=== PATIENT | female | born 1970 | race Caucasian/White ===

== ENCOUNTER 2021-10-11 08:37 | Emergency (ER) | payer MEDICARE, OTHER ==
[2021-10-11 10:24] LABS: HEMOGLOBIN 14.3 gm/dl (12.3-15.3); RED BLOOD COUNT 4.57 M/UL (4.00-5.10); WHITE BLOOD COUNT 9.8 K/UL (4.5-11.0)
[2021-10-11 11:06] LABS: BUN/CREATININE RATIO 10 (0-10)
== END 2021-10-11 12:02 | disposition home or self-care (01) ==
LOC: ER1 08:37
PROVIDERS: Physician Assistant
DX: M54.2 Cervicalgia (principal); G89.29 Other chronic pain; M25.512 Pain in left shoulder; I51.9 Heart disease, unspecified; F17.200 Nicotine dependence, unspecified, uncomplicated; Z88.5 Allergy status to narcotic agent; Z88.2 Allergy status to sulfonamides; Z88.1 Allergy status to other antibiotic agents
CPT/HCPCS: 71045; 80053; 82550; 82553; 84484; 85025; 93005; 96374; 96375; 99284; J2060; J2405

== ENCOUNTER 2021-10-13 12:47 | Emergency (ER) | payer MEDICARE, OTHER ==
[2021-10-13] MEDS ORDERED: MEDROL4 MG PO (14:31)
== END 2021-10-13 14:50 | disposition home or self-care (01) ==
LOC: ER1 12:47
DX: M50.10 Cervical disc disorder with radiculopathy, unspecified cervical region (principal); F17.200 Nicotine dependence, unspecified, uncomplicated; J44.9 Chronic obstructive pulmonary disease, unspecified; I10 Essential (primary) hypertension; Z95.0 Presence of cardiac pacemaker
CPT/HCPCS: 96372; 99283; J1170